=== PATIENT | male | born 1970 | race Caucasian/White ===

== ENCOUNTER 2023-03-03 10:59 | Day surgery (SDC) | payer BC, OTHER ==
[2022-11-26 17:18] VITALS: BMI 24.3
[~2023-03-03 10:59] MED LIST: LACTATED RINGERS 1,000 ML IV SCH; LIDOCAINE 1% (10MG/ML) FOR IV START INTRADERMA PRN
[2023-03-03] MEDS ORDERED: LACTATED RINGERS 1,000 ML IV SCH (11:17)
[2023-03-03] MEDS ORDERED: LACTATED RINGERS 1,000 ML IV ONE (11:22)
[2023-03-03] MEDS ORDERED: LIDOCAINE 1% INJ 10MG/ML (20 ML MDV) ONE (11:45)
[2023-03-03] MEDS ORDERED: PROPOFOL 10 MG/ML 20 ML VIAL IV ONE (11:45)
--- NOTE | 2023-03-03 11:49 | P.GSHP ---
History of Present Illness H&P Date: 03/03/23 Chief Complaint: colon cancer screening 52-year-old male here for colonoscopy. Last colonoscopy approximately 8 years ago. Patient with history of previous colovesical fistula requiring sigmoid colectomy. No bowel complaints currently. Past Medical History Additional Past Medical History / Comment(s): hx diverticulitis History of Any Multi-Drug Resistant Organisms: None Reported Past Surgical History: Bowel Resection, Orthopedic Surgery Additional Past Surgical History / Comment(s): bowel resection with colostomy then reversal,colonoscopies,ORIF lt ankle Past Anesthesia/Blood Transfusion Reactions: No Reported Reaction Additional Past Anesthesia/Blood Transfusion Reaction / Comment(s): no hx blood transfusions Smoking Status: Current every day smoker - Past Family History Father Family Medical History: No Reported History Medications and Allergies Home Medications Medication Instructions Recorded Confirmed Type No Known Home Medications 11/26/22 02/26/23 History Allergies Allergy/AdvReac Type Severity Reaction Status Date / Time No Known Allergies Allergy Verified 02/26/23 12:24 Surgical - Exam Vital Signs Temp Pulse Resp BP Pulse Ox 98 F 89 18 124/91 97 03/03/23 11:37 03/03/23 11:37 03/03/23 11:37 03/03/23 11:37 03/03/23 11:37 Physical exam: General: Well-developed, well-nourished HEENT: Normocephalic, sclerae nonicteric Abdomen: Nontender, nondistended Extremities: No edema Neuro: Alert and oriented Assessment and Plan (1) Colon cancer screening Narrative/Plan: Will proceed with colonoscopy at this time Current Visit: Yes Status: Acute Code(s): Z12.11 - ENCOUNTER FOR SCREENING FOR MALIGNANT NEOPLASM OF COLON SNOMED Code(s): 241348280
[2023-03-03 11:52] VITALS: PULSE 89; TEMP 98
--- NOTE | 2023-03-03 12:02 | P.PCN ---
Date of Procedure: 03/03/23 Procedure(s) Performed: PREOPERATIVE DIAGNOSIS: Colon cancer screening POSTOPERATIVE DIAGNOSIS: Diverticulosis PROCEDURE: Colonoscopy ANESTHESIA: MAC SURGEON: Fredis Gracia M.D. SPECIMENS: None ENDOSCOPIC PROCEDURE: The patient was placed on the endoscopy table in the left decubitus position. The Olympus colonoscope was inserted into the anus and passed under direct visualization to the base of the cecum. The appendiceal orifice was visualized. From that point the scope was slowly withdrawn inspe cting all surfaces carefully. There were no neoplastic inflammatory or polypoid lesions throughout the cecum, ascending, transverse, descending, and rectum. There was mild scattered diverticulosis noted. The previous colorectal anastomosis was widely patent.. Digital rectal examination was normal. The patient was taken to the recovery room in stable condition per anesthesia guidelines. RECOMMENDATIONS: Resume diet. Repeat colonoscopy 7-10 years.
[2023-03-03 12:39] VITALS: BP 134/87; RESP 15
== END 2023-03-03 12:33 | disposition home or self-care (01) ==
LOC: ORWHC2ENDO 10:59
PROVIDERS: ATTEND Surgery
DX: Z12.11 Encounter for screening for malignant neoplasm of colon (principal); K57.30 Diverticulosis of large intestine without perforation or abscess without bleeding; F17.200 Nicotine dependence, unspecified, uncomplicated
CPT/HCPCS: 45378; J2001; J2704